=== PATIENT | male | born 1960 | race Caucasian/White ===

== ENCOUNTER 2017-07-12 15:04 | Emergency (ER) | payer OTHER ==
[~2017-07-12] VITALS: Ht 177.8 cm; Wt 149.7 kg
[~2017-07-12 15:04] MED LIST: SILVADENE400 GM/JAR TP
[2017-07-12] MEDS ORDERED: PRILOSEC20 M1 PO (15:23)
[2017-07-12] MEDS ORDERED: ZITHROMAX Z-PA250 M2 PO (15:35)
[2017-07-12] MEDS ORDERED: FLONASE ALLERG9.9 ML NS (15:35)
--- NOTE | 2017-07-12 15:38 | [facility] Report ---
History of Present Issue Date/Time Seen by Provider 07/12/17 1527 Visit Reason Pt arrived:Walked Presenting Problem:PT STATES SINUS PRESSURE, RUNNY NOSE, HEAD CONGESTION AND COUGH THAT BEGAN FRIDAY NIGHT Location if Accident: Onset of symptoms date/time:/ or onset unknown for:MEDICAL HX UNKNOWN Have you (or family members/close friends) recently traveled outside the [place]? N If Yes, where/when: Have you had exposure to infectious disease within the past month? TB? Other? Specify: Source patient Exam Limitations no limitations Comment 56-year-old male presents for green-yellow nasal drainage, and sinus pressure that started last week with color change on the drainage since yesterday. ALLERGIES Coded Allergies: acetaminophen (From LORTAB) (07/12/17) hydrocodone (From LORTAB) (07/12/17) moxifloxacin (From AVELOX) (07/12/17) Home Medications Reported Medications OMEPRAZOLE MAGNESIUM (Prilosec 20MG) 20 MG PO DAILY History Medical History General CAD? No Angina: No [place]: No Hypertension? No Hyperlipidemia? No CHF? No DVT? No PE? No COPD? No Asthma? Yes Anemia? No GERD? Yes Gastric ulcers? No GI Bleed? No Hernia? No Thyroid Problems? No Hypothyroidism? No CVA? No Seizures? No Diabetes? No Renal Insuffiency? No UTI? No Stones? No BPH? No GB Disease: No Nephritic Syndrome? No Asplenia? No Hepatitis? No Sickle Cell Disease? No Arthritis? No Migraines? No Cataracts? No Glaucoma? No MRSA? No HIV? No TB? No Anxiety? No Depression? No Cancer? No Immunization HX DT/Tetanus > 10 YRS Surgical Hx Previous Surgery?Y ANKLE RT RT WRIST Social History Smoking Hx Smoker: Never Smoker Tobacco: No Alcohol Alcohol: No Review of Systems All Other Systems Reviewed and Negative ENT see HPI, nose discharge, nose congestion. Physical Exam Vital Signs Vital Signs Date Time Temp Pulse Resp B/P Pulse O2 O2 Flow FiO2 Ox Delivery Rate 07/12 1521 98.1 85 20 156/62 96 - WBC >12,000 or <4,000 or 10% bands? 2 or more SIRS Criteria Met? B/P:156/62 MAP:93 Creatinine >2.0? UA output<0.5ml/kg/hr for 2 hrs? Platelet count >100,000? Lactate >2.0mmol/1? INR >1.2 or PTT > than 60 sec? Evidence of Organ Dysfunction? Provider documented clinical suspician of infection? Sepsis Criteria Count: 1 Sepsis Risk: General Appearance normal appearance, WD/WN, no apparent distress Eye Exam - bilateral eye normal exam, bilateral eye PERRL, bilateral eye EOMI Ear, Nose, Throat hearing grossly normal, sinus pain/drainage, nasal congestion Neck normal inspection, full range of motion Respiratory Status Yes: trachea midline, chest symmetrical, non tender chest. No: respiratory distress. Lung Sounds bilateral: normal breath sounds, lungs clear. Cardiovascular normal exam, regular rate/rhythm, no peripheral edema Neurologic alert, normal exam, oriented x 3 Medical Decision Making LABS/Meds/Orders Pt receiving controlled substance in ED? No Departure Departure Time of Disposition 153 Disposition DC Home or Self Care(routine) Clinical Impression Primary Impression: Sinusitis Qualifiers: Sinusitis location: maxillary Chronicity: acute Recurrence: not specified as recurrent Qualified Code: J01.00 - Acute maxillary sinusitis, unspecified Condition STABLE Referrals Jim Ruvalcaba MD Patient Instructions Sinusitis Additional Instructions Follow-up with PCP this week Medications as ordered If symptoms worsen or do not improve return or be seen in the ER Tylenol Motrin as needed for pain and fever Discharge Counseling Counseled pt/family regarding diagnosis, test results, medications/RX, home care, follow up needs Prescriptions Current Visit Scripts Azithromycin (Zithromax) 250 MG PO DAILY #6 TAB USE DIRECTED. Fluticasone Propionate (Flonase Allergy Relief) 9.9 ML NS DAILY 14 Days at 1535
[2017-07-12 15:41] VITALS: BP 156/62
== END 2017-07-12 15:43 | disposition home or self-care (01) ==
LOC: UTC 15:04
DX: J01.00 Acute maxillary sinusitis, unspecified (principal); K21.9 Gastro-esophageal reflux disease without esophagitis; Z79.899 Other long term (current) drug therapy